=== PATIENT | female | born 1985 | race Two or more races ===

== ENCOUNTER 2025-01-14 20:01 | Emergency (ER) | payer OTHER ==
[~2025-01-14] VITALS: Ht 167.6 cm; Wt 72.6 kg
[~2025-01-14 20:01] MED LIST: PERCOCET 5/3251 TAB PO; SURFAK240 M1 PO
[2025-01-14] MEDS ORDERED: METFORMIN HCL500 M3 (21:08)
[2025-01-15] MEDS ORDERED: DIPHENHYDRAMINE HCL 12.5 MG/5 ML BLIST.PACK PO STA (01:12)
[2025-01-15] MEDS ORDERED: ACETAMINOPHEN 500 MG GEL..CAP PO STA (01:12)
[2025-01-15] MEDS ORDERED: GUAIFENESIN 200 MG/10 ML BLIST.PACK PO STA (01:12)
[2025-01-15] MEDS ORDERED: ACETAMINOPHEN 500 MG GEL..CAP PO ONE (01:18)
[2025-01-15] MEDS ORDERED: DIPHENHYDRAMINE HCL 12.5 MG/5 ML BLIST.PACK PO ONE (01:18)
[2025-01-15] MEDS ORDERED: GUAIFENESIN 200 MG/10 ML BLIST.PACK PO ONE (01:19)
[2025-01-15 01:51] LABS: URINE APPEARANCE Clear; URINE BILIRRUBIN Negative (NEGATIVE); URINE BLOOD Negative; URINE COLOR Yellow; URINE GLUCOSE Negative (NEGATIVE); URINE KETONE Trace (NEGATIVE); URINE LEUKOCYTE Trace; URINE NITRATE Negative; URINE PROTEIN Negative (NEGATIVE)
[2025-01-15 01:52] LABS: URINE EPITHELIAL CELLS 15.9 uL (0.0-38.8); URINE RBC 8.1 uL (0.0-20.8); URINE WBC 6.9 uL (0.0-23.2)
[2025-01-15 01:57] LABS: BASO % 0.3 % (0.1-1.2); EOS # 0.16 (0.04-0.54); EOS % 1.4 % (0.7-7.0); HEMATOCRIT 34.2 % (34.1-44.9); HEMOGLOBIN 11.5 g/dL (11.2-15.7); LYMPH # 1.92 (1.18-3.74); LYMPH % 16.6 % (19.3-53.1); MEAN CORPUSCULAR HEMOGLOBIN 30.8 pg (25.6-32.2); MONO # 2.03 (0.24-0.82); NEUT # 7.34 (1.56-6.13); NEUT % 63.6 % (34.0-71.1); PLATELET COUNT 352 K/uL (163-369); RED BLOOD COUNT 3.73 M/uL (3.93-5.22); RED CELL DISTRIBUTION WIDTH 12.8 % (11.6-14.4)
[2025-01-15 02:02] LABS: MONO % 17.6 % (4.7-12.5)
[2025-01-15 02:04] LABS: COVID-19 AG NEGATIVE (NEGATIVE); INFLUENZA A AG NEGATIVE (NEGATIVE)
[2025-01-15] MEDS ORDERED: ALL DAY ALLERGY10 M3 PO (04:58)
[2025-01-15] MEDS ORDERED: ZYNCOF 20-400120 ML PO (04:58)
== END 2025-01-15 05:01 | disposition home or self-care (01) ==
LOC: ER 20:28
PROVIDERS: General Practice
DX: Z34.90 Encounter for supervision of normal pregnancy, unspecified, unspecified trimester (principal); Z3A.08 8 weeks gestation of pregnancy; R05.9 Cough, unspecified; R51.9 Headache, unspecified; Z20.822 Contact with and (suspected) exposure to COVID-19; E11.9 Type 2 diabetes mellitus without complications; Z79.84 Long term (current) use of oral hypoglycemic drugs

== ENCOUNTER 2025-07-13 03:29 | Emergency (ER) | payer OTHER ==
[~2025-07-13] VITALS: Ht 167.6 cm; Wt 84.8 kg
[~2025-07-13 03:29] MED LIST changes: +ALL DAY ALLERGY10 M3 PO; +METFORMIN HCL500 M3; +ZYNCOF 20-400120 ML PO
[2025-07-13 04:29] VITALS: BP 123/80; O2SAT 99
[2025-07-13] MEDS ORDERED: HUMULIN N100 UNIT/2 IJ (04:33)
[2025-07-13] MEDS ORDERED: HUMULIN R100 UNIT/1 SUBCUTANEO (04:35)
[2025-07-13] MEDS ORDERED: NASAL MIST126 ML NS (04:36)
[2025-07-13] MEDS ORDERED: CEFTRIAXONE SODIUM 2,000 MG VIAL IV ONE (08:15)
[2025-07-13 09:29] LABS: BASO % 0.2 % (0.1-1.2); EOS # 0.08 (0.04-0.54); EOS % 0.7 % (0.7-7.0); LYMPH # 1.67 (1.18-3.74); LYMPH % 14.9 % (19.3-53.1); MEAN PLATELET VOLUME 10.20 fl (9.4-12.4); MONO # 1.59 (0.24-0.82); NEUT # 7.80 (1.56-6.13); NEUT % 69.4 % (34.0-71.1); RED CELL DISTRIBUTION WIDTH 13.5 % (11.6-14.4)
[2025-07-13 09:48] LABS: MONO % 14.1 % (4.7-12.5)
[2025-07-13] MEDS ORDERED: AMOX-CLAV 875-1 EACH PO (10:39)
[2025-07-14] MEDS ORDERED: PRENATA CHEWAB1 EACH PO (10:56)
[2025-07-14] MEDS ORDERED: CHILDREN'S ASPI81 MG PO (10:57)
== END 2025-07-13 11:18 | disposition home or self-care (01) ==
LOC: ER 03:29
PROVIDERS: Preventive Medicine Public Health & General Preventive Medicine
DX: O24.113 Pre-existing type 2 diabetes mellitus, in pregnancy, third trimester (principal); O26.893 Other specified pregnancy related conditions, third trimester; L03.012 Cellulitis of left finger; Z3A.33 33 weeks gestation of pregnancy; Z79.84 Long term (current) use of oral hypoglycemic drugs; Z79.4 Long term (current) use of insulin

== ENCOUNTER 2025-07-14 10:24 | Outpatient (CLI) | payer OTHER ==
[~2025-07-14] VITALS: Ht 167.6 cm; Wt 84.8 kg
[~2025-07-14 10:24] MED LIST changes: +AMOX-CLAV 875-1 EACH PO; +HUMULIN N100 UNIT/2 IJ; +HUMULIN R100 UNIT/1 SUBCUTANEO; +NASAL MIST126 ML NS
[2025-07-14 10:43] VITALS: BP 109/71
[2025-07-14] MEDS ORDERED: PRENATA CHEWAB1 EACH PO (10:56)
[2025-07-14] MEDS ORDERED: CHILDREN'S ASPI81 MG PO (10:57)
[2025-07-14 12:00] VITALS: BP 100/69
[2025-07-14 12:39] VITALS: BP 100/69
== END 2025-07-14 12:41 | disposition home or self-care (01) ==
LOC: OBS/DEL 10:24
PROVIDERS: ATTEND Specialist
DX: O26.893 Other specified pregnancy related conditions, third trimester (principal); R10.20 Pelvic and perineal pain unspecified side; O26.843 Uterine size-date discrepancy, third trimester; O36.8130 Decreased fetal movements, third trimester, not applicable or unspecified; O09.523 Supervision of elderly multigravida, third trimester; O24.313 Unspecified pre-existing diabetes mellitus in pregnancy, third trimester; Z3A.32 32 weeks gestation of pregnancy

== ENCOUNTER 2025-08-04 09:30 | Inpatient (IN) | payer OTHER ==
[~2025-08-04] VITALS: Ht 165.1 cm; Wt 86.6 kg
[~2025-08-04 09:30] MED LIST changes: +CHILDREN'S ASPI81 MG PO; +PRENATA CHEWAB1 EACH PO
[2025-08-04 10:15] LABS: BASO % 0.1 % (0.1-1.2); EOS # 0.06 (0.04-0.54); EOS % 0.7 % (0.7-7.0); LYMPH # 1.50 (1.18-3.74); LYMPH % 17.8 % (19.3-53.1); MEAN PLATELET VOLUME 10.10 fl (9.4-12.4); MONO # 1.42 (0.24-0.82); NEUT # 5.39 (1.56-6.13); NEUT % 64.0 % (34.0-71.1); RED CELL DISTRIBUTION WIDTH 14.5 % (11.6-14.4)
[2025-08-04 10:22] LABS: MONO % 16.8 % (4.7-12.5)
[2025-08-04 10:27] LABS: URINE APPEARANCE Clear; URINE BILIRRUBIN Negative (NEGATIVE); URINE BLOOD Negative; URINE COLOR Yellow; URINE GLUCOSE Negative (NEGATIVE); URINE KETONE Negative (NEGATIVE); URINE LEUKOCYTE Trace; URINE NITRATE Negative; URINE PROTEIN Trace (NEGATIVE); URINE UROBILINOGEN 1.0 E.U./dl
[2025-08-04 10:31] LABS: URINE BACTERIA 958.5 uL (0.0-1933); URINE EPITHELIAL CELLS 11.0 uL (0.0-38.8); URINE WBC 5.6 uL (0.0-23.2)
[2025-08-04 10:39] LABS: INR < 0.93
[2025-08-04 10:51] LABS: URINE CAST 0.14 uL (0.0-1.40); URINE RBC 1.5 uL (0.0-20.8)
[2025-08-04 10:59] LABS: ALT/SGPT 16.0 U/L (12-78); AST/SGOT 13.0 U/L (15-37); BILIRUBIN TOTAL 0.89 mg/dL (0.3-1.2); BUN CREA RATIO 15.0 (7.0-25.0); CREATININE SERUM 0.53 mg/dL (0.55-1.02); GFR 127.12; GLOBULINA 3.5 G/DL (2.4-3.5); GLUCOSE FASTING 70.0 mg/dL (65-100); OSMOLALITY SERUM 278.0 MOSM/KG (275-295)
[2025-08-11 05:22] VITALS: BP 118/81
[2025-08-11] MEDS ORDERED: RINGERS SOLUTION,LACTATED 1,000 ML IV SCH (06:30)
[2025-08-11 06:53] VITALS: BP 94/64; O2SAT 99
[2025-08-11] MEDS ORDERED: ERYTHROMYCIN BASE OPHT 1GM EACH TUBE OP ONE (07:09)
[2025-08-11] MEDS ORDERED: OXYTOCIN 10 UNITS/ML VIAL ONE (07:09)
[2025-08-11] MEDS ORDERED: TRIAMCINOLONE ACETONIDE 40 MG/ML VIAL ONE (07:49)
[2025-08-11] MEDS ORDERED: CEFAZOLIN SODIUM 1,000 MG VIAL ONE (07:50)
[2025-08-11] MEDS ORDERED: KETOROLAC TROMETHAMINE 60 MG VIAL IM NR (10:00)
[2025-08-11] MEDS ORDERED: KETOROLAC TROMETHAMINE 60 MG VIAL IM ONE (10:11)
[2025-08-11] MEDS ORDERED: MORPHINE SULFATE 4 MG/ML VIAL IV SCH (12:00)
[2025-08-11 13:45] VITALS: BP 129/77
[2025-08-11 15:49] VITALS: BP 125/80
[2025-08-11 16:39] LABS: BASO % 0.1 % (0.1-1.2); EOS # 0.00 (0.04-0.54); EOS % 0.0 % (0.7-7.0); LYMPH # 0.98 (1.18-3.74); LYMPH % 7.3 % (19.3-53.1); MEAN PLATELET VOLUME 10.50 fl (9.4-12.4); MONO # 1.73 (0.24-0.82); NEUT # 10.58 (1.56-6.13); NEUT % 79.1 % (34.0-71.1); RED CELL DISTRIBUTION WIDTH 14.1 % (11.6-14.4)
[2025-08-11 16:41] LABS: MONO % 12.9 % (4.7-12.5)
[2025-08-12] VITALS: BP 130/80
[2025-08-12] MEDS ORDERED: DOCUSATE SODIUM 100MG CAP PO NR (08:00)
[2025-08-12] MEDS ORDERED: ACETAMINOPHEN 325 MG TABLET PO SCH (08:00)
[2025-08-12] MEDS ORDERED: SIMETHICONE 125 MG CAPSULE PO NR (08:00)
[2025-08-12] MEDS ORDERED: OxyCODONE HCL 5 MG TABLET (ROXICODONE) PO SCH (08:00)
[2025-08-12 10:22] VITALS: BP 115/79; O2SAT 98
[2025-08-12 15:54] VITALS: BP 113/73
[2025-08-12] MEDS ORDERED: INSULIN LISPRO 1,000 UNIT/10 ML UNITS SUBCUTANEO NR (19:45)
[2025-08-12 20:43] VITALS: BP 118/77
[2025-08-13] VITALS: BP 121/79
[2025-08-13] MEDS ORDERED: COLACE100 MG PO (08:20)
[2025-08-13] MEDS ORDERED: SIMETHICONE125 M1 PO (08:20)
[2025-08-13] MEDS ORDERED: IBU800 MG PO (08:20)
[2025-08-13 09:15] VITALS: BP 122/80; O2SAT 99
== END 2025-08-13 13:40 | disposition home or self-care (01) | DRG 785 ==
LOC: OB/GYN 08-11 06:08 → LDR 08-11 06:08 → OB/GYN 08-11 07:00 → O/R 08-11 07:54 → OB/GYN 08-11 09:30
PROVIDERS: ADMIT Specialist; ATTEND Specialist
PROC: 0UB70ZZ Excision of Bilateral Fallopian Tubes, Open Approach (ICD-10-PCS; 2025-08-11)
PROC: 4A1HXCZ Monitoring of Products of Conception, Cardiac Rate, External Approach (ICD-10-PCS; 2025-08-11)
PROC: 10D00Z1 Extraction of Products of Conception, Low, Open Approach (ICD-10-PCS; principal; 2025-08-11 07:00)
DX: O34.211 Maternal care for low transverse scar from previous cesarean delivery (principal); O24.424 Gestational diabetes mellitus in childbirth, insulin controlled; Z3A.37 37 weeks gestation of pregnancy; Z37.0 Single live birth; Z79.4 Long term (current) use of insulin; Z30.2 Encounter for sterilization